=== PATIENT | female | born 1955 | race Caucasian/White ===

== ENCOUNTER → 2020-11-15 | Outpatient (CLI) | payer MEDICARE, SELFPAY | LOC: KOH-I 13:35 | DX: J20.9 Acute bronchitis, unspecified (principal); J01.91 Acute recurrent sinusitis, unspecified; J30.1 Allergic rhinitis due to pollen; J98.8 Other specified respiratory disorders; T50.995A Adverse effect of other drugs, medicaments and biological substances, initial encounter; F17.219 Nicotine dependence, cigarettes, with unspecified nicotine-induced disorders; R94.2 Abnormal results of pulmonary function studies | CPT/HCPCS: 70486 ==

== ENCOUNTER → 2021-01-02 | Outpatient (CLI) | payer MEDICARE, SELFPAY, OTHER | LOC: CT 12-29 11:00 | DX: R91.8 Other nonspecific abnormal finding of lung field (principal) | CPT/HCPCS: 71260; Q9963 ==

== ENCOUNTER → 2022-01-15 | Outpatient (CLI) | payer MEDICARE | LOC: KOH-I 15:30 | DX: F17.210 Nicotine dependence, cigarettes, uncomplicated (principal); R91.8 Other nonspecific abnormal finding of lung field | CPT/HCPCS: 71271 ==